=== PATIENT | male | born 1990 | race Caucasian/White ===

== ENCOUNTER 2023-09-04 20:36 | Emergency (ER) | payer OTHER ==
[~2023-09-04] VITALS: Ht 175.3 cm; Wt 93.0 kg
[2023-09-04 21:04] VITALS: BP 103/76; TEMP 98.4
[2023-09-04] MEDS ORDERED: IBUP-1953 PO (21:16)
[2023-09-04] MEDS ORDERED: HYDR-4303 PO (21:16)
[2023-09-04 21:29] VITALS: O2SAT 99
[2023-09-04] MEDS ORDERED: HYDROCODONE/APAP 5/325MG TABLET PO ONE (21:30)
[2023-09-04] MEDS ORDERED: IBUPROFEN 600 MG TABLET PO ONE (21:30)
== END 2023-09-04 21:30 | disposition home or self-care (01) ==
LOC: ER 20:40
DX: T23.222A Burn of second degree of single left finger (nail) except thumb, initial encounter (principal); Z60.2 Problems related to living alone; X10.2XXA Contact with fats and cooking oils, initial encounter; Y93.G3 Activity, cooking and baking; Y92.89 Other specified places as the place of occurrence of the external cause; Y99.8 Other external cause status